=== PATIENT | female | born 1950 | race Caucasian/White ===

== ENCOUNTER 2019-08-02 17:41 | Inpatient (IN) | payer OTHER ==
[~2019-08-02] VITALS: Ht 134.6 cm; Wt 38.5 kg
[2019-08-02 17:43] VITALS: BP 130/48
[2019-08-02 18:21] LABS: MCH 34.4 pg (26.0-34.0); MCHC 32.4 g/dL (28.0-37.0); MCV 106.1 fL (80.0-100.0); PLATELET COUNT 283 thou/uL (150-400); RDW 17.1 % (10.5-14.5); WBC 6.1 thou/uL (4.0-11.0)
[2019-08-02 18:26] LABS: HEMOGLOBIN 6.2 gm/dL (12.0-15.0)
[2019-08-02 18:27] LABS: HEMATOCRIT 19.1 % (37.0-47.0)
[2019-08-02] MEDS ORDERED: ARIMIDEX1 MG PO (18:28)
[2019-08-02] MEDS ORDERED: FLEXERIL PO (18:29)
[2019-08-02] MEDS ORDERED: PERCOCET 10-321 EAC1 PO (18:29)
[2019-08-02 18:31] LABS: CREATININE 1.3 mg/dL (0.6-1.0); POTASSIUM 4.4 mmol/L (3.5-5.1)
[2019-08-02 18:49] LABS: CALCIUM 14.5 mg/dL (8.5-10.1)
[2019-08-02 19:17] LABS: ABSOLUTE NEUTROPHILS 3.8 thou/uL (1.4-8.2); ATYPICAL LYMPHS 2 %
[2019-08-02 19:19] LABS: ANISOCYTOSIS 1+; MACROCYTES 1+; POIKILOCYTOSIS 1+; POLYCHROMASIA SLIGHT
[2019-08-02 19:34] VITALS: BP 148/66
[2019-08-02 19:51] VITALS: BP 148/66
[2019-08-02 20:15] VITALS: BP 151/62
[2019-08-03 00:35] VITALS: BP 116/51; BP 144/70
[2019-08-03 04:28] VITALS: BP 144/70
[2019-08-03 05:24] LABS: HEMATOCRIT 23.6 % (37.0-47.0); HEMOGLOBIN 7.7 gm/dL (12.0-15.0); MCH 31.9 pg (26.0-34.0); MCHC 32.7 g/dL (28.0-37.0); RBC 2.41 mil/uL (4.20-5.00); RDW 21.1 % (10.5-14.5); WBC 5.4 thou/uL (4.0-11.0)
[2019-08-03 05:27] LABS: MCV 97.7 fL (80.0-100.0)
[2019-08-03 05:36] LABS: CREATININE 1.1 mg/dL (0.6-1.0); PHOSPHORUS 3.5 mg/dL (2.5-4.9); POTASSIUM 3.9 mmol/L (3.5-5.1)
--- NOTE | 2019-08-03 05:43 | NUR ---
PT ALERT AND ORIENTED X4. PT HAS REPORTS OF MODERATE TO SEVERE PAIN IN LEFT ARM DUE TO RECENT FRACTURE OF HUMERUS. LEFT ARM IN SLING. PT TAKING PRN Q4HR OXYCODONE. PT REPORTS PAIN MEDICATION EFFECTIVE. PT REQUESTS OXYGEN FOR COMFORT. PT USES WHEELCHAIR FOR TRANSPORTATION SHE REPORTS BEING UNSTEADY WITH LEFT ARM IN SLING. PT ABLE TO TRANSFER AND AMBULATE SHORT DISTANCES WITH WITH X1 ASSIST. PT RECIEVED 1UNIT OF BLOOD AT 0052 WITHOUT ADVERSE EFFECT FOR HBG OF 6.2. HBG REASSESSED AT 0516 AT 7.7. CRITICAL CALCIUM LAB VALUE OF 13.9 CALLED INTO ANN NEUMANN AT 0547. AT 0551 RECIEVED ORDERS TO CONTINUE FLUIDS AND MONITOR LAB VALUES. PT CURRENTLY RESTING IN BED WITH TWIN SISTER AT BEDSIDE. ENCOURAGED TO NOTIFY STAFF FOR ALL CONCERNS. BED IN LOWEST POSITION, CALL LIGHT WITHIN REACH, BED ALARMS ON. WILL CONTINUE TO MONITOR.
[2019-08-03 05:44] LABS: CALCIUM 13.9 mg/dL (8.5-10.1)
[2019-08-03 08:10] VITALS: BP 154/61
--- NOTE | 2019-08-03 08:10 | NUR ---
PT RESTING IN BED. GIVEN PRN PAIN MED. PT ALERT XS 4. SISTER IN ROOM.
--- NOTE | 2019-08-03 11:07 | NUR ---
DR COPELAND HERE TO SEE PATIENT CONSULT WAS PUT IN BY DR PINEDA.
--- NOTE | 2019-08-03 11:08 | NUR ---
PATIENT MOVING TO ROOM 211 FOR TELE MONITORING. REPORT GIVEN TO CHARGE NURSE.
[2019-08-03 11:50] VITALS: BP 143/60
--- NOTE | 2019-08-03 13:03 | EKG ---
[address] [address] ELECTROCARDIOGRAM REPORT Name: JOSE DAVID CAVAZOS Room #: 211-P ADM IN M.R.#: [id number] Admission: 08/02/19 Attend Phys: Gerardo Diallo MD Discharge: Date of : 54 Report #: [id number] THIS REPORT FOR: //name// [facility] ED Test Date: 2019-08-02 Test Time: 19:26:48 Pat Name: JOSE DAVID CAVAZOS Department: Room: 211 Gender: F Ccie: ELOINA : 1950 Requested By: Gurinder Huntley Order Number: [id number] MD: Jcarlos Mora Measurements Intervals [employer] Rate: 108 P: 33 MT: 209 QRS: -19 QRSD: 84 T: 8 QT: 295 QTc: 396 Interpretive Statements Sinus tachycardia No significant abnormality No previous ECG available for comparison Electronically Signed On 08-03-2019 13:02:53 [employer] by Jcarlos Mora [email or web address] <ELECTRONICALLY SIGNED> By: Jcarlos Mora MD, [facility] 08/03/19 1302 1926 25 Jcarlos Mora MD, FACC /EPI
[2019-08-03 14:56] LABS: PHOSPHORUS 3.3 mg/dL (2.5-4.9)
[2019-08-03 14:57] LABS: CALCIUM 13.2 mg/dL (8.5-10.1)
[2019-08-03 14:58] LABS: % SATURATION 17 % (20-39); ALBUMIN 2.5 g/dL (3.4-5.0); DIRECT BILIRUBIN 0.1 mg/dL (<0.1-0.3); IRON 44 ug/dL (50-170); TIBC 254 ug/dL (250-450); TOTAL BILIRUBIN 0.3 mg/dL (<0.1-1.0); TOTAL PROTEIN 5.9 g/dL (6.4-8.2)
[2019-08-03 15:59] LABS: FOLIC ACID 37.2 ng/mL (8.6-58.9)
[2019-08-03 16:30] VITALS: BP 151/75
--- NOTE | 2019-08-03 18:17 | NUR ---
PT TAKEN TO ROOM 211 ALL BELONGINGS PACKED AND TAKEN WITH PATIENT.REPORT TO CCU NURSE.PT HAS SLING TO LEFT ARM .PT CONT OF B&B.PT W/O PAIN OR RESP DISTRESS AT TIME OF TRANSFER.
[2019-08-03 19:18] VITALS: BP 143/63
--- NOTE | 2019-08-03 19:46 | NUR ---
PT TRANSFERED FROM [address] [place] [address]. ALERT AND ORIENTED. VSS. RECEIVED PRN PAIN MED WITH PARTIAL RELIEF. CRITICAL LAB RESULTS CALLED IN TO DR. PINEDA. ORDERS NOTED. ESQUIVEL PLACED FOR STRICT I&O. WILL CONTINUE TO MONITOR.
[2019-08-04 03:49] VITALS: BP 128/58
[2019-08-04 05:01] LABS: HEMATOCRIT 23.9 % (37.0-47.0); HEMOGLOBIN 7.8 gm/dL (12.0-15.0); MCH 32.1 pg (26.0-34.0); MCHC 32.6 g/dL (28.0-37.0); MCV 98.6 fL (80.0-100.0); RBC 2.43 mil/uL (4.20-5.00); RDW 21.8 % (10.5-14.5); WBC 5.2 thou/uL (4.0-11.0)
[2019-08-04 05:30] LABS: POTASSIUM 3.6 mmol/L (3.5-5.1)
[2019-08-04 05:38] LABS: CALCIUM 12.4 mg/dL (8.5-10.1)
--- NOTE | 2019-08-04 06:11 | NUR ---
A/O X 4.FORGETFUL AT TIMES.TRIED TO PULLED UP IN BED.PATIENT IS MORE COMFORTABLE WITH SEMI MAURICIO'S POSITION.RECENT CALCIUM LEVEL IS 12.4 CUFF CUTTER IS AWARE.ESQUIVEL TO SATYA.MONITOR SHOWS SR.POC CONTINUED.
[2019-08-04 07:50] VITALS: BP 150/73
[2019-08-04 11:00] VITALS: BP 164/77
[2019-08-04 16:15] VITALS: BP 134/60
--- NOTE | 2019-08-04 16:36 | NUR ---
PT CARE ASSUMED APPROX 0700. ASSESSMENT CHARTED. PT DENIES SOA. VSS. REPORTS ADEQUATE PAIN MANAGEMENT OF GENERALZED/BACK PAIN. FAMILY AT BEDSIDE. PT AND FAMILY HAVE ALL RECEIVED CLINICAL UPDATES. ALL DNEY QUESTIONS AND CONCERNS REGARDING POC. PT UP WITH WALKER AND STEADY GAIT. TOLERATING CHANGES TO POC. BREATHING IMPROVED. HEMOCULT REMAINS UNCOLLECTED DUE TO NO SPECIMINE BEING AQUIRED. NO DISTRESS NOTED.
--- NOTE | 2019-08-04 18:36 | NUR ---
PT HR ELEVATED. HR SUSTAINED 120s AT REST. PT DENIES PAIN AND SOA. ALL OTHER VITAL SIGNS STABLE. DR PINEDA NOTIFIED.
[2019-08-04 19:11] VITALS: BP 154/65
[2019-08-05 03:25] VITALS: BP 126/60
[2019-08-05 05:02] LABS: CALCIUM 11.2 mg/dL (8.5-10.1); CREATININE 1.1 mg/dL (0.6-1.0); HEMATOCRIT 21.9 % (37.0-47.0); HEMOGLOBIN 7.1 gm/dL (12.0-15.0); MCH 32.1 pg (26.0-34.0); MCHC 32.3 g/dL (28.0-37.0); MCV 99.3 fL (80.0-100.0); POTASSIUM 3.7 mmol/L (3.5-5.1); RBC 2.2 mil/uL (4.20-5.00); RDW 21.7 % (10.5-14.5); WBC 4.3 thou/uL (4.0-11.0)
[2019-08-05 07:50] VITALS: BP 127/68
[2019-08-05 08:09] LABS: 25-HYDROXY TOTAL 92.9 ng/mL (30.0-100.0)
[2019-08-05 11:30] VITALS: BP 124/69
--- NOTE | 2019-08-05 16:29 | NUR ---
PT CARE ASSUMED APPROX 0700. ASSESSMENT CHARTED. PT DENIES SOA THIS SHIFT. O2 TITRATED TO RA AT THIS TIME AND PT TOLERATING. COUGH PERSISTS. MANAGING WITH MEDS. PT REPORTS INTERMITTENT RELIEF. PT REPORTS ADEQUATE PAIN MANAGEMENT OF LEFT ARM WELL. VSS. UP WITH MIN ASSIST AND WALKER. UP TO CHAIR FOR MEALS. FAMILY AT BEDSIDE. CLINICAL UPDATES GIVEN. PT AND FAMILY DENY QUESTIONS OR CONCERNS REGARDING POC. PT TOLERATING POC AND POC CHANGES. NO DISTRESS NOTED.
[2019-08-05 16:40] VITALS: BP 135/74
--- NOTE | 2019-08-05 17:49 | HC ---
[facility] [place] [address] CONSULTATION Name: JOSE DAVID CAVAZOS Room #: 211-P ADM IN M.R.#: [id number] Admission: 08/02/19 Attend Phys: Gerardo Diallo MD Discharge: Date of : 54 Report #: [id number] THIS REPORT FOR: //name// CC: Gerardo Martinez MD DATE OF SERVICE: 08/03/2019 PHYSICIAN REQUESTING THE CONSULT: Vishnu Alcala MD. REASON FOR CONSULTATION: Hypercalcemia and anemia. HISTORY OF PRESENT ILLNESS: The patient is a 69-year-old female, who is a patient of [employer] with a history of node positive and metastatic breast cancer at the time of diagnosis. Earlier on, we thought she had ER/IA negative bharath disease and so she was treated with Taxol and then had found on retrospect a lymph and then also Xeloda, had progression. More recently, we found out that lymph earlier on addendum had been found to be ER/IA positive. The patient was on Arimidex this summer. Unfortunately, her recent PET scan as an outpatient showed progressive disease. We are planning on perhaps a lymph node biopsy. She has also had had unexplained anemia with fairly normal iron, B12, and folate type tests. Note that she came with a hemoglobin of 6.2 and was transfused up to 7.7. The patient had been at home and earlier last week had fallen when up at night to go to the bathroom and it resulted in a left humeral fracture. This is in a sling and had been seen by Dr. Hugo Hughes. She had been seen in the office several days ago and was found to be quite anemic. She came to the hospital for a transfusion and evaluation. Her hemoglobin here was 6.2 and today it is 7.7. Also, her calcium was found to be 14.5. The patient denies fevers or chills. She has been feeling slightly sleepy. Appetite has not been as good, perhaps some constipation, some chronic back pain, some newer arm pain since the fracture. No skin rash. No new arm or leg swelling. PAST MEDICAL HISTORY: Notable for a history of the breast cancer from several years ago, node positive and metastatic to the bone at the time of the diagnosis, previously had been on Taxol and then Xeloda and most recently Arimidex. Note there have been plans for a possible rebiopsy of a lymph node if we can determine which one to see if she might have a PI3K kinase mutation, so we could use a medication along with her Faslodex, if she is ER/IA negative, we are going to consider Doxil chemotherapy. We will probably plan on a bone marrow biopsy to help answer this question once she is here. Also, has a history of chronic kidney disease, hypothyroidism, the bone mets for which she [address] [address] CONSULTATION Name: JOSE DAVID CAVAZOS Room #: 211-P [facility] IN M.R.#: [id number] Admission: 08/02/19 Attend Phys: Gerardo Diallo MD Discharge: Date of : 54 Report #: [id number] had been on Xgeva. The recent pubic rami fracture is healing and then the left humeral fracture. PAST MEDICAL HISTORY: As above. FAMILY HISTORY: No one newly diagnosed with cancer. 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 I think she might have been a teacher, still want to clarify this. Her sister is present. PHYSICAL EXAMINATION: GENERAL: The patient appears her stated age. VITAL SIGNS: Recent height is 4 feet 5 inches, 134.6 cm, and weight is 80 pounds or 36.3 kilograms. Blood pressure is 154/61, O2 sat 92%, respirations 18, pulse 113, fever at 99.6. The patient's mentation is little bit slower than usual. Face is symmetric. Left arm is in a sling. MOOD: She is conversant and pleasant. NEUROLOGIC: Speech and thought pattern is little bit slow, but she appears to be answering questions thoughtfully, but slowly. LUNGS: Clear anteriorly without any rhonchi, rales, or wheezes. HEART: Regular rate. LYMPHATICS: No enlarged lymph nodes in the supraclavicular, cervical, axillary, or inguinal region. BREASTS: Deferred. EXTREMITIES: Without clubbing or cyanosis. LABORATORY DATA: Here is notable as mentioned above for the calcium of 14.5 on admission and down to 13.9, creatinine 1.3, and platelets 283. ASSESSMENT AND PLAN: 1. Hypercalcemia. Agree with IV fluids and bisphosphonate ____ follow serial calcium level. 2. Metastatic breast cancer with the recent PET scan showing progressive disease on Arimidex and Xgeva. Talked with the patient. We will help arrange for bone marrow biopsy with the conscious sedation to both understand her anemia and perhaps get a piece of the cancer so we can do breast prognostic panel testing on. 3. Anemia, agree with transfusion. Await bone marrow biopsy results. 4. Left humeral fracture, in a sling, followed by Dr. Hughes. 5. Chronic kidney disease, mild. Watch drug doses and hydration. 6. Protein-calorie malnutrition. Encourage supplements. 7. Hypothyroid, replace. 8. Pain. Continue pain meds. [facility] [address] [place] [address] CONSULTATION Name: JOSE DAVID CAVAZOS Room #: 211-P ADM IN M.R.#: [id number] Admission: 08/02/19 Attend Phys: Gerardo Diallo MD Discharge: Date of : 54 Report #: [id number] We will follow with you. <ELECTRONICALLY SIGNED> By: Kalpesh Auguste MD 08/05/19 1749 1134 1242 Kalpesh Auguste MD /nt
[2019-08-05 20:15] VITALS: BP 158/75
[2019-08-06 04:09] LABS: HEMATOCRIT 23.4 % (37.0-47.0); HEMOGLOBIN 7.6 gm/dL (12.0-15.0); MCH 32.2 pg (26.0-34.0); MCHC 32.5 g/dL (28.0-37.0); MCV 99.1 fL (80.0-100.0); RBC 2.36 mil/uL (4.20-5.00); RDW 20.9 % (10.5-14.5); WBC 5.1 thou/uL (4.0-11.0)
[2019-08-06 04:23] LABS: CALCIUM 9.9 mg/dL (8.5-10.1); MAGNESIUM 2.2 mg/dL (1.8-2.4); POTASSIUM 3.8 mmol/L (3.5-5.1)
[2019-08-06 04:45] VITALS: BP 148/97
[2019-08-06 07:54] VITALS: BP 146/98
[2019-08-06 10:22] LABS: INR 1.1; PROTIME 11.3 Seconds (9.3-11.4)
[2019-08-06 11:03] LABS: ALBUMIN 2.6 g/dL (3.4-5.0); DIRECT BILIRUBIN < 0.1 mg/dL (<0.1-0.3); SGOT 55 U/L (15-37); SGPT 16 U/L (30-65); TOTAL BILIRUBIN 0.3 mg/dL (<0.1-1.0)
[2019-08-06 15:23] VITALS: BP 126/70
--- NOTE | 2019-08-06 15:35 | 2DMMODE ---
[facility] [address] [place] [address] 2 D/M-MODE ECHOCARDIOGRAM Name: DIRKJOSE DAVID Room #: 211-P [facility] IN M.R.#: [id number] Admission: 08/02/19 Attend Phys: Vishnu Alcala, Discharge: Date of : 54 Report #: [id number] THIS REPORT FOR: //name// APPROVED REPORT Study performed: 08/06/2019 13:48:28 EXAM: Comprehensive 2D, Doppler, and color-flow Echocardiogram Patient Location: Bedside Room #: 211 Status: routine BSA: 1.16 HR: 108 bpm BP: 146/108 mmHg Rhythm: Tachycardia Other Information Study Quality: Adequate Indications Dyspnea Breast CA 2D Dimensions IVSd: 8.88 (7-11mm) LVOT Diam: 17.00 (18-24mm) LVDd: 39.29 mm PWd: 9.66 (7-11mm) Ascending Ao: 29.31 (22-36mm) LVDs: 26.27 (25-40mm) Aortic Root: 29.09 mm LV Single Plane 4CH: 73.44 % LV Single Plane 2CH: 65.77 % Biplane EF: 69.3 % Volumes Left Atrial Volume (Systole) Single Plane 4CH: 51.27 mL Single Plane 2CH: 30.84 mL LA ESV Index: 37.00 mL/m2 Aortic Valve AoV Peak Rober.: 1.47 m/s AO Peak Gr.: 8.59 mmHg LVOT Max P.39 mmHg LVOT Max V: 1.05 m/s TOMA Vmax: 1.66 cm2 Mitral Valve [facility] [address] [place] [address] 2 D/M-MODE ECHOCARDIOGRAM Name: JOSE DAVID CAVAZOS Danielle Room #: 211-P [facility] IN [facility]#: [id number] Admission: 08/02/19 Attend Phys: Vishnu Alcala, Discharge: Date of : 54 Report #: [id number] E/A Ratio: 1.1 MV Decel. Time: 150.65 ms MV E Max Rober.: 0.92 m/s MV A Rober.: 0.80 m/s MV PHT: 43.69 ms IVRT: 58.82 ms TDI E/Lateral E': 11.50 E/Medial E': 5.41 Medial E' Rober.: 0.17 m/s Lateral E' Rober.: 0.08 m/s Pulmonary Valve PV Peak Rober.: 1.27 m/s PV Peak Gr.: 6.46 mmHg Pulmonary Vein P Vein S: 1.11 m/s P Vein A: 0.39 m/s P Vein D: 0.71 m/s P Vein A Dur.: 79.6 msec P Vein S/D Ratio: 1.56 Tricuspid Valve TR Peak Rober.: 3.26 m/s RAP Estimate: 7.00 mmHg TR Peak Gr.: 42.59 mmHg PA Pressure: 50.00 mmHg Left Ventricle The left ventricle is normal size. There is normal LV segmental wall motion. There is normal left ventricular wall thickness. Left ventricular systolic function is normal. The left ventricular ejection fraction is within the normal range. LVEF is 65-70%. Moderate diastolic dysfunction is present (pseudonormal filling). Right Ventricle The right ventricle is normal size. The right ventricular systolic function is normal. Atria The left atrium size is normal. The right atrium size is normal. Aortic Valve The aortic valve is normal in structure. No aortic regurgitation is present. There is no aortic valvular stenosis. Mitral Valve [address] [address] 2 D/M-MODE ECHOCARDIOGRAM [facility] Room #: 211-P [facility] IN [facility]#: [id number] Admission: 08/02/19 Attend Phys: Vishnu Alcala, Discharge: Date of : 54 Report #: [id number] The mitral valve is normal in structure. There is no mitral valve regurgitation noted. No evidence of mitral valve stenosis. Tricuspid Valve The tricuspid valve is normal in structure. Mild tricuspid regurgitation. Pulmonary artery pressure is 48 mmHg. Pulmonic Valve The pulmonary valve is normal in structure. There is no pulmonic valvular regurgitation. Great Vessels The aortic root is normal in size. The ascending aorta is normal in size. IVC is normal in size and collapses >50% with inspiration. Pericardium There is no pericardial effusion. <Conclusion> The left ventricle is normal size. There is normal left ventricular wall thickness. Left ventricular systolic function is normal. The right ventricle is normal size. The left atrium size is normal. The aortic valve is normal in structure. There is no mitral valve regurgitation noted. Mild tricuspid regurgitation. Pulmonary artery pressure is 48 mmHg. <ELECTRONICALLY SIGNED> By: Boris Kovacs MD 08/06/19 1535 1535 1535 Boris Kovacs MD /INF
[2019-08-06 16:19] VITALS: BP 135/74
--- NOTE | 2019-08-06 18:13 | NUR ---
ASSUMED CARE AT SHIFT CHANGE, ALERT AND ORIENTED X4. VSS AND AFEBRILE. ASSESMENT CHARTED. MEDICATED FOR PAIN NEEDED. LT ARM REMAINS ON SLING FOR IMMOBOLIZATION OF THE ARM. BIOPSY WAS DONE TODAY AND PATEINT WAS CONFUSED POST PROCEDURE, CONFUSION RESOLVED AND PATIENT IS BACK TO HER BASELINE. FAMILY AT BEDSIDE, AND WILL CONTINUE WITH POC.
--- NOTE | 2019-08-06 18:19 | NUR ---
met with patient she reports she lives with spouse and sister in one level home. She reports she has a walker and wc at home. She does not have oxygen. Patient reports plan for home at [place]. She reports a fall 2 weeks ago. Therapy evals in process.
[2019-08-06 20:00] VITALS: BP 132/60
--- NOTE | 2019-08-07 02:46 | NUR ---
A/O X 3.PAIN WELL CONTROLLED ON HER LEFT SHOULDER.SLING IMMOBILIZER INTACT.LEFT ARM SWELLING NOTED.ESQUIVEL TO DD.MONITOR SHOWS SINUS TACHYCARDIA.POC CONTINUED.
[2019-08-07 04:37] LABS: HEMATOCRIT 22.4 % (37.0-47.0); HEMOGLOBIN 7.3 gm/dL (12.0-15.0); MCH 32.5 pg (26.0-34.0); MCHC 32.4 g/dL (28.0-37.0); MCV 100.3 fL (80.0-100.0); RBC 2.24 mil/uL (4.20-5.00); RDW 21.2 % (10.5-14.5); WBC 5.6 thou/uL (4.0-11.0)
[2019-08-07 04:45] LABS: CALCIUM 8.9 mg/dL (8.5-10.1); CREATININE 1.1 mg/dL (0.6-1.0); MAGNESIUM 2.2 mg/dL (1.8-2.4); POTASSIUM 4.4 mmol/L (3.5-5.1)
[2019-08-07 05:37] VITALS: BP 123/76
[2019-08-07 07:57] VITALS: BP 140/63
[2019-08-07 13:07] LABS: GLOBULIN TOTAL 3.2 g/dL (2.2-3.9); M-SPIKE Not Observed g/dL (Not Observed)
[2019-08-07 14:00] LABS: COLOR YELLOW; SOURCE RIGHT CHEST; TOTAL VOLUME 62 mL
[2019-08-07 14:01] LABS: CLARITY CLOUDY
[2019-08-07 14:26] LABS: BF NUCLEATED CELLS 3973; BF RBC 1716
[2019-08-07 15:44] LABS: BF MACROPHAGE 13; BF NEUTROPHILS 0
[2019-08-07 17:05] VITALS: BP 108/52
--- NOTE | 2019-08-07 17:32 | NUR ---
ASSESMENT DOCUMENTED, MEDICATED FOR LT AND RT SHOULDER, AND PAIN IS CONTROLLED. PATIENT C/O CONSTIPATION, MEDICATED PER ORDERS AND NO BM REPORTED. THORACENTESIS WAS DONE TODAY RT BACKSIDE DRESSING INTACT. WILL CONTINUE WITH POC.
[2019-08-07 19:22] VITALS: BP 136/67
--- NOTE | 2019-08-08 05:13 | NUR ---
ASSUMED PT CARE AT 1900. PT A/OX4, VITAL SIGNS STABLE, ASSESSMENT CHARTED. PT PAIN ADEQAUTELY MANAGED WITH PAIN MEDICATION. PT HAD A BOWEL MOVEMENT WHICH HELPED RELIEVE ABDOMINAL PRESSURE/PAIN. RESTED WELL THROUGH THE NIGHT. NO ACUTE CHANGES. PROGRESSING TOWARD PLAN OF CARE. WILL CONTINUE TO MONITOR.
[2019-08-08 05:21] VITALS: BP 123/57
[2019-08-08 08:00] VITALS: BP 133/64
[2019-08-08 11:13] VITALS: BP 141/67
[2019-08-08] MEDS ORDERED: SYNTHROID75 MCG PO (12:21)
[2019-08-08] MEDS ORDERED: LASIX 40 MG TAB40 MG PO (12:22)
[2019-08-08] MEDS ORDERED: KLOR-CON 1010 MEQ PO (12:22)
[2019-08-08 13:37] VITALS: BP 141/67
[2019-08-08 13:41] VITALS: BP 141/67
--- NOTE | 2019-08-08 13:50 | NUR ---
[facility] SPOKE WITH KENDALL IN INTAKE SHE RECEIVED REFERRAL AND A EXTRA 02 TANK DELIVERED TO PT'S ROOM.
--- NOTE | 2019-08-08 14:27 | NUR ---
met with patient she is to dc home today with HH care. Patient with no preference for HH care. Referral to [facility]. Patient with need for oxygen at home no preference of provider. [facility]ax[facility]. Tank delivered to her room. Reviewed with patient home health and home oxygen. Patient to call [facility] when she arrives home. no further needs PCP Dr Martinez.
--- NOTE | 2019-08-08 15:33 | NUR ---
FAXED REFERRAL TO [facility] HH SPOKE WITH KAILASH IN INTAKE SHE RECEIVED REFERRAL AND CAN ACCEPT PT. FAXED DC ORDERS/SUMMARY AND RECEIVED CONFIRMATION AND KAILASH IN INTAKE WILL NOTIFY PT TIME OF VISITS.
--- NOTE | 2019-08-08 16:17 | NUR ---
[facility] AND ORIENT[facility] AND VSS. MEDICATED FOR PAIN NEEDED. ALVIN BAPTISTETINEGregorio. DISCHARGE AND MEDICATION INSTRUCTIONS GIVEN TO PATIENT AND HER SISTER, VERBALIZED UNDERSTANDING.
[2019-08-09 14:11] LABS: BODY FLUID ALBUMIN 1.6 g/dL (Not Estab.); BODY FLUID AMYLASE 13 U/L (()); BODY FLUID GLUCOSE 156 mg/dL (()); BODY FLUID LDH 101 IU/L (()); BODY FLUID PROTEIN 2.9 g/dL (())
[2019-08-11 10:12] LABS: SOURCE THORACENTESIS
--- NOTE | 2019-08-13 12:06 | PATH ---
[facility] [place] [address] [address] PATHOLOGY RPT PROCEDURE Name: JOSE DAVID CAVAZOS Room #: 211-P DIS IN M.R.#: [id number] Admission: 08/02/19 Date of : 54 Discharge: 08/08/19 Report #: [id number] Path Case #: [id number] Note [facility] Accession Number: [id number] TESTS RESULT FLAG UNITS REF RANGE LAB Clinician Provided Cytology Information No. of containers..01 Other (Miscellaneous) Source: [A] 01 PLEURAL FLUID DIAGNOSIS: [A] 02 PLEURAL FLUID POSITIVE FOR MALIGNANT CELLS. METASTATIC CARCINOMA IS PRESENT. REACTIVE MESOTHELIAL CELLS ARE PRESENT. THIS INTERPRETATION INCLUDES EVALUATION OF A CELL BLOCK. COMMENT: Multiple properly controlled immunohistochemical stains are performed on the cell block. The atypical plasmacytoid proliferation identified within the cell block shows strong membranous reactivity with B72.3, AE1/AE3, and no cells with reactivity for ER (negative). JULEE-EP4 shows patchy weak membranous reactivity. Calretinin and desmin are reactive within the background mesothelial cells present within the infiltrate. CD138 shows membranous reactivity within most of the plasmacytoid cells. Based on the immunohistochemical stains as well as the morphology, the findings likely represent a metastatic carcinoma within this pleural fluid, likely of breast origin. Dr. Carmencita Goodwin has seen employee's representative slides of this case and concurs with the diagnosis. Findings of this case are telephoned and discussed with Dr. Vignesh Auguste at approximately 11:30 a.m. on 08/09/19. (IUV:repairer kiln car; 08/09/2019) Pathologist ICD10: 02 J91.0 Signed out by: Stephanie Beebe MD, Pathologist NPI- [id number] Performed by: Judy Smith, [employer] Instructor ([facility]) Gross description: 01 20 ML, YELLOW, CLOUDY /LCS 09/04/1840 0000 Local FLAG LEGEND: L-Low Normal,H-High Normal,LL-Alert Low,HH-Alert High <-Panic Low,>-Panic High,A-Abnormal,AA-Critical Abnormal Performed at: [facility] [address] [place] [address] PATHOLOGY RPT PROCEDURE Name: JOSE DAVID CAVAZOS Danielle Room #: 211-P DIS IN M.R.#: [id number] Admission: 08/02/19 Date of : 54 Discharge: 08/08/19 Report #: [id number] Path Case #: [id number] [address] [place] [address] Fermín Nguyen MD, [address] [address] Stephanie Beebe MD, Specimen Comment: [id number] Specimen Comment: A duplicate report has been generated due to demographic updates. Performed at: 01 [facility] [address], [place], [place] [id number] MD Fermín Nguyen MD Phone: [phone]
--- NOTE | 2019-08-14 17:06 | PATH ---
[facility] [address] [place] [address] PATHOLOGY RPT PROCEDURE Name: LUZ MARIA CAVAZOS Bill Room #: 211-P [facility] IN M.R.#: [id number] Admission: 08/02/19 Date of : 54 Discharge: 08/08/19 Report #: [id number] Path Case #: [id number] [facility] Accession Number: [id number] . 01 Material submitted: . PART A: bone - BONE MARROW BIOPSY PART B: bone - BONE MARROW CLOT PART C: bone - BONE MARROW ASPIRATE SLIDES PART D: body - PERIIPHREAL SMEARS PART E: bone - BONE MARROW SEND OUT . 01 Clinical history: . Anemia; possible metastatic cancer or MDS History of breast cancer and anemia; patient has broken left arm This is a 69-year-old woman with anemia. . 02 Diagnosis: Bone marrow aspirate, biopsy, cell clot and peripheral blood: - Peripheral blood with severe macrocytic anemia. 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 (SEE COMMENT) . (CLW:vitaly; 08/09/2019) QLM 08/09/2019 1359 Local . 02 Comment: Overall, the bone marrow is completely replaced by metastatic carcinoma. Background trilineage hematopoiesis is markedly reduced to absent. Clinical and radiographic correlation is required. Physics Technical Officer slides are co-reviewed with Dr. Stephanie Beebe. The case is discussed with Dr. Kalpesh Auguste by Dr. Stephanie Beebe on 08/09/2019 at 11:30 AM. . (CLW:mmbill; 08/09/2019) . 02 Addendum: . Special studies report received from [facility], [address] [place] [address], [address], [place], [address], on case [id number], labeled with their number [id number], dated 08/14/2019. . Breast/Prognostic Marker Analysis . Specimen Site: Bone Marrow, Metastatic Carcinoma, History of Breast Cancer (Biopsy) Specimen ID #: [id number] . . ER (Estrogen Receptor) [place] [address] PATHOLOGY RPT PROCEDURE Name: LUZ MARIA CAVAZOS Room #: 211-P DIS IN M.R.#: [id number] Admission: 08/02/19 Date of : 54 Discharge: 08/08/19 Report #: [id number] Path Case #: [id number] Absent/Negative Percent: 0.50% Analysis: Manual Comments: Staining intensity: Weak . KS (Progesterone Receptor) Absent/Negative Percent: 0.00 Analysis: Manual Comments: Adequate external positive control is noted. Internal positive control not seen but tissue is adequate for evaluation. . HER2 Not Over-Expressed Score: 1+ Analysis: Manual . Time to Fixation (Cold Ischemic Time): Not Provided Duration of Fixation: Not Provided Type of Fixative: Not Provided Fixative Disclaimer: Fixation was either not indicated or other than 10% neutral buffered formalin. Results should be interpreted accordingly. . at [employer]. Joy Martinez M.D. Pathologist . Methodology The HER2 Receptor protein expression is analyzed using the [place] HER2 rabbit monoclonal antibody (clone [id number]). This assay is used for diagnostic determination of the HER2 protein over-expression in paraffin embedded, formalin fixed breast cancer tissue on the [place] Benchmark. The specimen is processed using a secondary antibody-HRP conjugate detection system. The membrane staining of the tumor is determined either by manual score or image analysis. This antibody is intended for in vitro diagnostic use. The score is reported as 0, 1+, 2+, or 3+. This test is used for clinical purposes. . A rabbit monoclonal antibody (clone SP1) that recognized the Estrogen Receptor is used to perform immunohistochemistry on routinely fixed (formalin) paraffin embedded tissue on the [place] Benchmark. The specimen is processed using a secondary antibody-HRP conjugate detection system. The percentage of stained tumor nuclei is determined either manually or by image analysis. This test is intended for in vitro diagnostic use. This test is used for clinical purposes. . A rabbit monoclonal antibody (clone 1E2) that recognized the Progesterone [address] [address] PATHOLOGY RPT PROCEDURE Name: LUZ MARIA CAVAZOS Room #: 211-P [facility] IN M.R.#: [id number] Admission: 08/02/19 Date of : 54 Discharge: 08/08/19 Report #: [id number] Path Case #: [id number] Receptor is used to perform immunohistochemistry on routinely fixed (formalin) paraffin embedded tissue on the [employer] Benchmark. The specimen is processed using a secondary antibody-HRP conjugate detection system. The percentage of stained tumor nuclei is determined either manually or by image analysis. This test is intended for in vitro diagnostic use. This test is used for clinical purposes. . Intended Use: This antibody is intended for in vitro diagnostic (IVD) use. HER2 (4B5) is a rabbit monoclonal antibody intended for the semi-quantitative detection of HER2 antigen in sections of formalin-fixed, paraffin embedded normal and neoplastic tissue. . This antibody is intended for in vitro diagnostic (IVD) use. Estrogen Receptor (ER) (SP1) is a rabbit monoclonal antibody (IgG) that is intended for the qualitative detection of estrogen receptor (ER) antigen in sections of formalin-fixed, paraffin-embedded tissue. ER is a rabbit monoclonal antibody that recognizes human estrogen receptor alpha. . This antibody is intended for in vitro diagnostic (IVD) use. Progesterone Receptor (KS) (1E2) is a rabbit monoclonal antibody (IgG) that is intended for the qualitative detection of progesterone receptor (KS) antigen in sections of formalin fixed, paraffin embedded tissue. KS is a rabbit monoclonal antibody that recognizes the A and B forms of the human progesterone receptor. . Disclaimer: This Test was performed by [facility] at [address], [address]. . [facility] is a business unit of [facility] a wholly-owned subsidiary of [employer] . This assay has not been validated on decalcified tissues. Results should be interpreted with caution if this specimen was decalcified given the likelihood of false negativity on decalcified specimens. . Any image(s) that accompany this report is/are a commercial sales representative image(s) only and should not be used to render a diagnosis. . This interpretation is contingent on the specimen and the clinical information received. . For any special tests/stains performed, known positive cells or tissues are tested with each marker and examined to ensure positivity. Positive and negative internal controls, if present, react appropriately. . [address] [address] PATHOLOGY RPT PROCEDURE Name: LUZ MARIA CAVAZOS Room #: 211-P DIS IN M.R.#: [id number] Admission: 08/02/19 Date of : 54 Discharge: 08/08/19 Report #: [id number] Path Case #: [id number] This analysis is an adjunct to the evaluation of the referring physician and does not represent a final diagnosis. . The immunohistochemistry tests performed at [facility]. were validated on tissue fixed in 10% neutral buffered formalin. The performance characteristics of the tests performed on tissue processed in other fixatives is not known. . HER2 testing at [facility] is performed in compliance with the 2018 updated ASCO/CAP Clinical Practice Guideline Focused Update. If the result is EQUIVOCAL (2+), it must be confirmed by an alternative assay such as FISH or Dual CISCO. REF: Janice PURI, AROLDO Davis et al: Human Epidermal Growth Factor Receptor 2 Testing in Breast Cancer: ASCO/CAP Clinical Practice Guideline Focused Update. J Clin Oncol 36:4036-8576, 2018. . HER2 and ER/KS ASCO/CAP guidelines require fixation in neutral buffered formalin for a minimum of 6 and a maximum of 72 hours. Fixation times less than 6 hours may not adequately preserve cell proteins. Fixation times longer than 72 hours may cause excess cross-linking of proteins reducing the antigen available for staining. Either scenario can cause reduced staining; hence false negative results are possible and should be considered for these situations if the HER2 IHC score is less than 3+ or ER or KS is negative (no staining or <1% positive). It is recommended that specimens fixed longer than 72 hours with HER2 IHC scores less than 3+ be confirmed by HER2 FISH or Dual CISCO. The time from biopsy/excision to fixation in formalin (cold ischemic time) must be less than 1 hour. Time to fixation (cold ischemic time) greater than 1 hour should be interpreted with caution. HER2 testing, mainly HER2 by FISH, is particularly vulnerable since excessive cold ischemic time results in preferential loss of HER2 probe signals that may lead to false negative results. . SCORE STAINING PATTERN IN TUMOR CELLS INTERPRETATION RESULTS 0 No staining observed or incomplete, faint membrane staining in less than or equal to 10% of tumor cells. Negative 1+ Incomplete, faint membrane staining in greater than 10% of tumor cells. Negative 2+ Weak to moderate complete membrane staining observed in greater than 10% of tumor cells. Equivocal* *Must be confirmed by alternative assay (IHC/FISH/Dual CISCO) 3+ Intense, complete membrane staining in greater than 10% of tumor cells. [address] [address] PATHOLOGY RPT PROCEDURE Name: LUZ MARIA CAVAZOS Bill Room #: 211-P [facility] IN M.R.#: [id number] Admission: 08/02/19 Date of : 54 Discharge: 08/08/19 Report #: [id number] Path Case #: [id number] Positive . A complete copy of the report is on file. . Professional and Technical services performed by [employer] at [address], [place] [address]. . (CLW:amliliya 08/14/2019) . LBQ/08/14/2019 Addendum Electronically Signed by Carmencita Goodwin MD, Pathologist . 02 Electronically signed: . Carmencita Goodwin MD, Pathologist NPI- [id number] . 01 Gross description: . A. The specimen is received in formalin, labeled "Luz Maria Cavazos, BM biopsy". Received are two needle cores of light light bone measuring 0.4 cm each in length by 0.3 cm in diameter. The specimen is submitted entirely in cassette A1, following light decalcification. . B. A specimen is not received due to dry tap. (CAA; 08/07/2019) QAC/QAC 08/07/2019 1332 Local . 02 Microscopic: . CBC Data (08/02/19): WBC 6,100/uL, RBC 1.80, hemoglobin 6.2 g/dL, hematocrit 19.1%, MCV 106.1 fL, MCH 34.4 pg, MCHC 32.4 g/dL, RDW 17.1%, and platelet count 283,000/uL. White blood cell differential: segs 61%, bands 1%, lymphs 19%, monos 11%, eos 4%, basos 2%, and atypical lymphs 2%. . Peripheral Blood Smear: Cytomorphological examination of the Lyman's stained peripheral blood smear confirms the provided data. Red blood cells show severe macrocytic anemia with mild anisocytosis. No significant poikilocytosis is identified. White blood cells are predominantly segmented neutrophils and are without significant dyspoiesis or significant left shift. Lymphocytes are predominantly small, round, and mature appearing with condensed chromatin and scant cytoplasm with admixed large granular lymphocytes and reactive-appearing lymphocytes. On scanning, no markedly atypical lymphoid cells are seen. Monocytes are mature. Platelets are adequate in number and mainly normal in morphology with rare larger platelets noted. . Aspirate Smears: Aspirate smears are unavailable due to dry tap. Cytomorphological examination of Lyman stained touch imprints show clusters of loosely cohesive atypical cells. The atypical cells are large in size with [facility] [address] [place] [address] PATHOLOGY RPT PROCEDURE Name: LUZ MARIA CAVAZOS Room #: 211-P [facility] IN .R.#: [id number] Admission: 08/02/19 Date of : 54 Discharge: 08/08/19 Report #: [id number] Path Case #: [id number] moderately condensed nuclear chromatin and moderate cytoplasm. Plasmacytoid features and intracytoplasmic vacuoles are noted. Background trilineage hematopoiesis is markedly reduced to absent. . Core Biopsy: The decalcified bone marrow core biopsy is small, but adequate. The bone marrow space is completely replaced with a metastatic epithelioid neoplasm. Cytoplasmic vacuoles and focal signet ring cell morphology is identified. Background trilineage hematopoiesis is absent. The bone marrow is essentially completely replaced. . Properly-controlled special stains and immunohistochemical stains are performed: . Block A1: AE1/AE3 - Tumor cells reactive; Iron - 1/4+ iron positivity; Reticulin - 3/4+ reticulin fibrosis. . Flow Cytometry: Flow cytometric immunophenotypic analysis was cancelled due to insufficient viable cells for accurate testing. Please see separate flow cytometry report from [facility] ([id number]). . Cytogenetics Analysis: Cytogenetic chromosomal analysis was cancelled due to insufficient viable cells for accurate testing. Please see separate cytogenetics report from [facility] ([id number]). . (CLW:mml; 08/09/2019) . 02 Pathologist provided ICD-10: D64.9, C96.9 . 02 CPT . 156267, L57808, 228092, 540691, 586553, 851769, 091996 Specimen Comment: A courtesy copy of this report has been sent to [phone] Specimen Comment: Report sent to Specimen Comment: A duplicate report has been generated due to demographic updates. Performed at: 01 [facility] [address] [id number] MD Fermín Nguyen MD Phone: [phone] Performed at: 02 [facility] [address] [id number] MD Vincent Oliver MD Phone: [phone]
== END 2019-08-08 17:13 | disposition home health service (06) | DRG 597 ==
LOC: ER 17:41 → 2N 19:25 → EROBS 19:25 → 4S 19:59 → 2N 08-03 11:42
PROVIDERS: Emergency Medicine; Nurse Practitioner Family; Radiology Vascular & Interventional Radiology; ADMIT Internal Medicine
PROC: 30233N1 Transfusion of Nonautologous Red Blood Cells into Peripheral Vein, Percutaneous Approach (ICD-10-PCS; principal; 2019-08-03)
PROC: 07DR3ZX Extraction of Iliac Bone Marrow, Percutaneous Approach, Diagnostic (ICD-10-PCS; 2019-08-06)
PROC: 0W993ZZ Drainage of Right Pleural Cavity, Percutaneous Approach (ICD-10-PCS; 2019-08-07)
DX: C50.912 Malignant neoplasm of unspecified site of left female breast (principal); J96.01 Acute respiratory failure with hypoxia; E46 Unspecified protein-calorie malnutrition; C79.51 Secondary malignant neoplasm of bone; J98.11 Atelectasis; J91.0 Malignant pleural effusion; D62 Acute posthemorrhagic anemia; K92.2 Gastrointestinal hemorrhage, unspecified; E03.9 Hypothyroidism, unspecified; M54.9 Dorsalgia, unspecified; E83.52 Hypercalcemia; K59.00 Constipation, unspecified; N18.9 Chronic kidney disease, unspecified; G89.29 Other chronic pain; Z91.81 History of falling; Z88.0 Allergy status to penicillin; Z88.2 Allergy status to sulfonamides; Z90.12 Acquired absence of left breast and nipple; Z92.21 Personal history of antineoplastic chemotherapy; Z92.3 Personal history of irradiation; Z88.8 Allergy status to other drugs, medicaments and biological substances; Z79.899 Other long term (current) drug therapy; Z68.21 Body mass index [BMI] 21.0-21.9, adult
CPT/HCPCS: 10081; 10195